=== PATIENT | female | born 2000 | race Caucasian/White ===

== ENCOUNTER 2018-02-25 16:58 | Emergency (ER) | payer OTHER ==
[2018-02-25] MEDS ORDERED: NA CHLORIDE 0.9% 1,000 ML ONE (18:38)
[2018-02-25 19:07] LABS: Absolute Lymphocytes (CBC) 2.9 K/uL (0.7-4.9); Absolute Monocytes 0.6 K/uL (0.1-1.3); Absolute Neutrophil 9.4 K/uL (1.8-8.0); Basophils % 0.2 % (0-1.3); Eosinophils % 3.5 % (0-4.4); Hematocrit 41.9 % (36.0-45.0); Lymphocytes % 21.6 % (15.3-44.8); MCH 28.2 pg (27.0-35.0); MCV 85.8 fL (80-100); MPV 10.7 fL (7.6-11.3); Monocytes % 4.7 % (3.3-12.3); RBC Red Blood Cell Count 4.89 M/uL (3.86-4.86)
[2018-02-25 19:08] LABS: Protime INR 1.01
[2018-02-25 19:29] LABS: ALT/SGPT 25 U/L (12-78); AST/SGOT 17 U/L (15-37); Albumin 3.8 g/dL (3.4-5.0); Alkaline Phosphatase 94 U/L (45-117); BUN Blood Urea Nitrogen 11 mg/dL (7-18); Bicarbonate 25 mmol/L (21-32); Bilirubin Direct 0.1 mg/dL (0-0.2); Bilirubin Total 0.2 mg/dL (0.2-1.0); Glucose Level 86 mg/dL (74-106); Potassium 3.5 mmol/L (3.5-5.1); Protein, Total 7.9 g/dL (6.4-8.2); Sodium Level 143 mmol/L (136-145)
[2018-02-25 20:00] LABS: Urine Blood NEGATIVE (NEG); Urine Glucose NEGATIVE (NEG); Urine Protein NEGATIVE (NEG); Urine Specific Gravity 1.015 (1.005-1.030)
[2018-02-25 21:14] LABS: Alcohol Serum/Plasma < 3 mg/dL (0-3)
[2018-02-25 21:14] LABS: Barbiturates NEGATIVE (NEGATIVE); Benzodiazepines NEGATIVE (NEGATIVE); Cocaine NEGATIVE (NEGATIVE); METHAMPHETAM NEGATIVE (NEGATIVE); Methadone NEGATIVE (NEGATIVE); Opiates NEGATIVE (NEGATIVE); Phencyclidine NEGATIVE (NEGATIVE); THC Cannibis POSITIVE (NEGATIVE)
--- NOTE | 2018-02-25 22:45 | ER ---
Nurse's Notes [facility] Name: Gus Hollis Age: 17 yrs Sex: Female : 2000 Arrival Date: 02/25/2018 Time: 17:01 Bed 18 Private MD: Diagnosis: Depression;Suicidal attempt Presentation: 02/25 17:42 Presenting complaint: Patient states: Took approximately 24 Benadryl about an hour ago. jl7 Transition of care: patient was not received from another setting of care. Onset of symptoms was February 25, 2018. Risk Assessment: Do you want to hurt yourself or someone else? Patient reports desire/thoughts of hurting themselves or someone else. Provider notified. Initial Sepsis Screen: Does the patient meet any 2 criteria? No. Patient's initial sepsis screen is negative. Does the patient have a suspected source of infection? No. Patient's initial sepsis screen is negative. Care prior to arrival: None. 17:42 Method Of Arrival: Ambulatory [facility] 17:42 Acuity: ROCKY 2 jl7 Triage Assessment: 17:45 General: Appears in no apparent distress. uncomfortable, Behavior is cooperative, jl7 drowsy. Pain: Denies pain. 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 - Social history:: Smoking status: Patient/guardian denies using tobacco, Patient uses street drugs, marijuana, Patient/guardian denies using alcohol. - Ebola Screening: : No symptoms or risks identified at this time. - Family history:: not pertinent. - Hospitalizations: : No recent hospitalization is reported. Screenin:56 Abuse screen: Denies threats or abuse. Denies injuries from another. Nutritional hj screening: No deficits noted. Tuberculosis screening: No symptoms or risk factors identified. Fall Risk None identified. Assessment: 17:45 General: Appears in no apparent distress. uncomfortable, Behavior is cooperative, hj appropriate for age, crying. Pain: Denies pain. Neuro: Level of Consciousness is awake, alert, obeys commands, Oriented to person, place, time, situation, Appropriate for age. Cardiovascular: Capillary refill < 3 seconds Patient's skin is warm and dry. Respiratory: Airway is patent Respiratory effort is even, unlabored, Respiratory pattern is regular, symmetrical. GI: No signs and/or symptoms were reported involving the gastrointestinal system. : No signs and/or symptoms were reported regarding the genitourinary system. EENT: No signs and/or symptoms were reported regarding the EENT system. Derm: No signs and/or symptoms reported regarding the dermatologic system. Musculoskeletal: No signs and/or symptoms reported regarding the musculoskeletal system. 18:16 Reassessment: Patient and/or family updated on plan of care and expected duration. Pain hj level reassessed. awaiting provider to visit pt;. 18:20 Reassessment: spoke with poison control rep about pt ingestion of 24 tab Benadryl, hj suggested to watch pt 6-8 hours post ingestion, draw CBC, CMP, tox screen/ drug screen, tylenol levels 4 hours post ingestion; to look for signs of confusion, hallucinations, seizure; watch for widening QRS and address it with Na Bicarb and Benzo; suggest use of activated charcoal 1 g/kg; get test;. 19:23 Reassessment: Patient appears in no apparent distress at this time. Patient and/or jd3 family updated on plan of care and expected duration. Pain level reassessed. Patient is alert, oriented x 3, equal unlabored respirations, skin warm/dry/pink. pt reassured. pt resting in bed. [facility] discussing plan with provider. 20:00 Reassessment: Patient appears in no apparent distress at this time. Patient and/or jd3 family updated on plan of care and expected duration. Pain level reassessed. Patient is alert, oriented x 3, equal unlabored respirations, skin warm/dry/pink. pt resting in bed, with family at bedside. mother requested to be called when more information is available about a potential transfer. mother- Miss Hollis [phone]. 21:00 Reassessment: Patient appears in no apparent distress at this time. Patient and/or jd3 family updated on plan of care and expected duration. Pain level reassessed. Patient is alert, oriented x 3, equal unlabored respirations, skin warm/dry/pink. pt reporting not needing anything at the current time. pt resting in bed. no distress noted at this time. 22:00 Reassessment: Patient appears in no apparent distress at this time. No changes from [facility] previously documented assessment. Patient and/or family updated on plan of care and expected duration. Pain level reassessed. Patient is alert, oriented x 3, equal unlabored respirations, skin warm/dry/pink. 22:10 Reassessment: Nurse to Nurse given to Ronald at [facility]. jd3 22:17 Reassessment: Nurse to nurse report given to Kevin at [facility]. jd3 22:32 Reassessment: Nurse to nurse given to WILLIE at [facility]. jd3 23:00 Reassessment: Patient appears in no apparent distress at this time. Patient and/or [facility] family updated on plan of care and expected duration. Pain level reassessed. Patient is alert, oriented x 3, equal unlabored respirations, skin warm/dry/pink. pt and family informed of approval at [facility], transfer form signed. 23:37 Reassessment: Patient appears in no apparent distress at this time. Patient and/or jd3 family updated on plan of care and expected duration. Pain level reassessed. Patient is alert, oriented x 3, equal unlabored respirations, skin warm/dry/pink. report given to EMS, pt reported understanding to need for transfer. Psych: 17:56 Subjective: Patient's mood is sad, Having thoughts of suicide. Objective: Patient is hj cooperative, Speech is normal, Affect is appropriate. Interventions: Removed personal items and placed in bag. Patient placed in hospital gown. Searched person for dangerous items. Belonging list filled out. Suicide Risk Assessment: Sad Person Scale: Sex of patient: Female: Score 0 points. Age of patient: Score 1 point if patient 15-34. Depression: Score 1 point if signs of depression are present. Previous Attempt: Substance Abuse: Rational Thinking: Score 0 point if patient has rational thinking. Social Support: Score 0 if social support is present/available. Organized Plan: Score 1 point if patient had a plan in place. Relationship: Chronic Sickness:. Safety Checks: Personal items have been removed. Door is open. Visitors are present. Pt denies substance abuse. Commitment: Patient will be a voluntary commitment. Vital Signs: 17:45 BP 133 / 77; Pulse 108; Resp 16 S; Temp 98.9(O); Pulse Ox 97% on R/A; Weight 113.4 kg jl7 (R); Height 5 ft. 8 in. (172.72 cm) (R); Pain 0/10; 21:49 BP 112 / 65; Pulse 75; Resp 18; Temp 98.9; Pulse Ox 99% on R/A; Pain 0/10; oe 23:16 BP 130 / 84; Pulse 84; Resp 18; Temp 99.3(O); Pulse Ox 100% on R/A; Pain 0/10; oe 17:45 Body Mass Index 38.01 (113.40 kg, 172.72 cm) jl7 ED Course: 17:01 Patient arrived in ED. mr 17:43 Triage completed. jl7 17:45 Arm band placed on right wrist. 7 17:50 Guido Shipman, RN is Primary Nurse. hj 17:58 Patient has correct armband on for positive identification. Placed in gown. Bed in low hj position. Call light in reach. Side rails up X 1. Adult w/ patient. 18:01 Baljeet Nguyen MD is Attending Physician. rn 18:20 Urine collected: clean catch specimen, clear. dh3 18:25 Initial lab(s) drawn, by me, sent to lab. Inserted saline lock: 20 gauge in right dh3 antecubital area, using aseptic technique. Blood collected. 19:00 Safety checks: Items removed: yes. Door open/sign placed on door: yes. Family/friend oe present: no. Sitter present: Yes. 19:15 Safety checks: Items removed: yes. Door open/sign placed on door: yes. Family/friend oe present: no. Sitter present: Yes. 19:30 Safety checks: Items removed: yes. Door open/sign placed on door: yes. Family/friend oe present: no. Sitter present: Yes. 19:45 Safety checks: Items removed: yes. Door open/sign placed on door: yes. Family/friend oe present: no. Sitter present: Yes. 20:00 Safety checks: Items removed: yes. Door open/sign placed on door: yes. Family/friend oe present: yes. Family/friends encouraged to stay with patient. no. Sitter present: Yes. 20:15 Safety checks: Items removed: yes. Door open/sign placed on door: yes. Family/friend oe present: no. Sitter present: Yes. 20:35 Primary Nurse role handed off by Guido Shipman RN jd3 20:35 Cristofer English RN is Primary Nurse. jd3 20:45 Safety checks: Items removed: yes. Door open/sign placed on door: yes. Family/friend oe present: no. Sitter present: Yes. 21:00 Safety checks: Items removed: yes. Door open/sign placed on door: yes. Family/friend oe present: no. Sitter present: Yes. 21:15 Safety checks: Items removed: yes. Door open/sign placed on door: yes. Family/friend oe present: no. Sitter present: Yes. 21:30 Safety checks: Items removed: yes. Door open/sign placed on door: yes. Family/friend oe present: yes. Family/friends encouraged to stay with patient. Sitter present: Yes. 21:45 Safety checks: Items removed: yes. Door open/sign placed on door: yes. Family/friend oe present: yes. Family/friends encouraged to stay with patient. Sitter present: Yes. 22:00 Safety checks: Items removed: yes. Door open/sign placed on door: yes. Family/friend oe present: no. Sitter present: Yes. 22:15 Safety checks: Items removed: yes. Door open/sign placed on door: yes. Family/friend oe present: no. Sitter present: Yes. 22:17 Attending Physician role handed off by Baljeet Nguyen MD va 22:17 Luis Ocampo MD is Attending Physician. wa 22:30 Safety checks: Items removed: yes. Door open/sign placed on door: yes. Family/friend oe present: no. Sitter present: Yes. 22:45 Safety checks: Items removed: yes. Door open/sign placed on door: yes. Family/friend oe present: yes. Family/friends encouraged to stay with patient. no. Sitter present: Yes. 23:00 Safety checks: Items removed: yes. Door open/sign placed on door: yes. Family/friend oe present: yes. Family/friends encouraged to stay with patient. Sitter present: Yes. 23:06 No provider procedures requiring assistance completed. IV discontinued, intact, jd3 bleeding controlled, No redness/swelling at site. Pressure dressing applied. 23:15 Safety Checks: Personal items have been removed. The door is open or patient has been jd3 placed in a hallway bed/chair. A family member and/or friend is present and encouraged to stay. Sitter present at this time. 23:30 Safety Checks: Personal items have been removed. The door is open or patient has been jd3 placed in a hallway bed/chair. A family member and/or friend is present and encouraged to stay. Sitter present at this time. Administered Medications: 18:32 Drug: NS 0.9% 1000 ml Route: IV; Rate: 1000 ml; Site: right antecubital; 23:17 Follow up: Response: No adverse reaction; IV Status: Completed infusion; IV Intake: jd3 1000ml Intake: 23:17 IV: 1000ml; Total: 1000ml. [facility] Outcome: 22:45 ER care complete, transfer ordered by . va 23:36 Transferred by ground EMS Transfer form completed. Note: transported to [address] report given to EMS 23:36 Condition: stable 23:36 Instructed on the need for transfer, Demonstrated understanding of instructions. 23:41 Patient left the ED. [facility] Signatures: Lily Rhodes Roman, MD MD rn Joaquin, Henry, RN RN hj Espinosa, Orlando oe Leal, Jahala, RN RN andrez7 Sarita Franklin 3 Luis Ocampo MD MD wa Davies, Jonathon, RN RN jd3 Corrections: (The following items were deleted from the chart) 18:25 18:20 Reassessment: spoke with poison control rep about pt ingestion of 24 tab cindy Benadryl, suggested to watch pt 6-8 hours post ingestion, draw CBC, CMP, tox screen/ drug screen, tylenol levels 4 hours post ingestion; to look for signs of confusion, hallucinations, seizure; watch for widening QRS and address it with Na Bicarb and Benzo; suggest use of activated charcoal 1 g/kg; 20:10 20:00 Safety checks: Items removed: yes. Door open/sign placed on door: yes. leticia Family/friend present: no. Sitter present: Yes. oe 21:54 21:53 Safety checks: Items removed: yes. Door open/sign placed on door: yes. oe Family/friend present: yes. Family/friends encouraged to stay with patient. Sitter present: Yes. oe 23:08 21:54 Safety checks: Items removed: yes. Door open/sign placed on door: yes. oe Family/friend present: no. Sitter present: Yes. oe
--- NOTE | 2018-02-25 22:45 | EDPHYS ---
Physician Documentation [facility] Name: Gus Hollis Age: 17 yrs Sex: Female : 2000 Arrival Date: 02/25/2018 Time: 17:01 Bed 18 Private MD: ED Physician Luis Ocampo HPI: 02/25 18:52 This 17 yrs old Female presents to ER via Ambulatory with complaints of rn Suicidal Ideation. 18:52 The patient presents to the emergency department with depression, suicide ideation. 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 Severity of symptoms: At their worst the symptoms were mild in the emergency department the symptoms are unchanged. The patient has experienced similar episodes in the past. 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 - Social history:: Smoking status: Patient/guardian denies using tobacco, Patient uses street drugs, marijuana, Patient/guardian denies using alcohol. - Ebola Screening: : No symptoms or risks identified at this time. - Family history:: not pertinent. - Hospitalizations: : No recent hospitalization is reported. ROS: 18:52 Constitutional: Negative for fever, chills, and weight loss, Eyes: Negative for injury, rn pain, redness, and discharge, Neck: Negative for injury, pain, and swelling, Cardiovascular: Negative for chest pain, palpitations, and edema, Respiratory: Negative for shortness of breath, cough, wheezing, and pleuritic chest pain, Abdomen/GI: Negative for abdominal pain, vomiting, diarrhea, and constipation, + nausea MS/Extremity: Negative for injury and deformity, Skin: Negative for injury, rash, and discoloration, Neuro: Negative for headache, weakness, numbness, tingling, and seizure. Exam: 18:52 Constitutional: This is a well developed, well nourished patient who is awake, alert, rn tearful. Head/Face: Normocephalic, atraumatic. Eyes: Pupils equal round and reactive to light, extra-ocular motions intact. Lids and lashes normal. Conjunctiva and sclera are non-icteric and not injected. Cornea within normal limits. Periorbital areas with no swelling, redness, or edema. Neck: Trachea midline, no thyromegaly or masses palpated, and no cervical lymphadenopathy. Supple, full range of motion without nuchal rigidity, or vertebral point tenderness. No Meningismus. Cardiovascular: Regular rate and rhythm with a normal S1 and S2. No gallops, murmurs, or rubs. Normal PMI, no JVD. No pulse deficits. Respiratory: Lungs have equal breath sounds bilaterally, clear to auscultation and percussion. No rales, rhonchi or wheezes noted. No increased work of breathing, no retractions or nasal flaring. Abdomen/GI: Soft, non-tender, with normal bowel sounds. No distension or tympany. No guarding or rebound. No evidence of tenderness throughout. Skin: Warm, dry with normal turgor. Normal color with no rashes, no lesions, and no evidence of cellulitis. MS/ Extremity: Pulses equal, no cyanosis. Neurovascular intact. Full, normal range of motion. Equal circumference. Neuro: Awake and alert, GCS 15, oriented to person, place, time, and situation. Cranial nerves II-XII grossly intact. Motor strength 5/5 in all extremities. Sensory grossly intact. Cerebellar exam normal. Normal gait. Vital Signs: 17:45 BP 133 / 77; Pulse 108; Resp 16 S; Temp 98.9(O); Pulse Ox 97% on R/A; Weight 113.4 kg jl7 (R); Height 5 ft. 8 in. (172.72 cm) (R); Pain 0/10; 21:49 BP 112 / 65; Pulse 75; Resp 18; Temp 98.9; Pulse Ox 99% on R/A; Pain 0/10; oe 23:16 BP 130 / 84; Pulse 84; Resp 18; Temp 99.3(O); Pulse Ox 100% on R/A; Pain 0/10; oe 17:45 Body Mass Index 38.01 (113.40 kg, 172.72 cm) jl7 MDM: 18:01 Patient medically screened. rn 22:42 Differential diagnosis: depression, suicidal attempt. depression. needs psych eval. or Data reviewed: vital signs, nurses notes. Test interpretation: by ED physician or midlevel provider: UDS noted for THC. Response to treatment: the patient's symptoms have mildly improved after treatment. Physician consultation:. Special discussion: accepted by Dr. Cutler at [facility]. 02/25 18:32 Order name: Acetaminophen; Complete Time: 22: 02/25 18:32 Order name: Basic Metabolic Panel; Complete Time: 22: 02/25 18:32 Order name: CBC with Diff; Complete Time: : 02/25 18:32 Order name: ETOH Level; Complete Time: 22: 02/25 18:32 Order name: Hepatic Function; Complete Time: 22: 02/25 18:32 Order name: PT-INR; Complete Time: 22: 02/25 18:32 Order name: Urine Test (obtain specimen); Complete Time: 18:32 02/25 18:32 Order name: Ptt, Activated; Complete Time: 22: 02/25 18:32 Order name: Salicylate; Complete Time: 22: 02/25 18:32 Order name: Urine Drug Screen; Complete Time: 22: 02/25 18:32 Order name: EKG; Complete Time: 18:33 02/25 19:32 Order name: Urine Dipstick--Ancillary (enter results); Complete Time: 22: [facility] 02/25 19:32 Order name: Urine --Ancillary (enter results); Complete Time: 22:22 [facility] 02/25 18:32 Order name: EKG - Nurse/Tech; Complete Time: 18:47 02/25 18:32 Order name: IV Saline Lock; Complete Time: 18:33 02/25 18:32 Order name: Labs collected and sent; Complete Time: 18:33 02/25 18:32 Order name: Urine Dipstick-Ancillary (obtain specimen); Complete Time: 18:33 rn Administered Medications: 18:32 Drug: NS 0.9% 1000 ml Route: IV; Rate: 1000 ml; Site: right antecubital; hj 23:17 Follow up: Response: No adverse reaction; IV Status: Completed infusion; IV Intake: jd3 1000ml Disposition: 02/25/18 22:45 Transfer ordered to Psych Facility. Diagnosis are Depression, Suicidal attempt. - Reason for transfer: Higher level of care. - Accepting physician is Dr. Cutler. - Condition is Stable. - Problem is new. - Symptoms have improved. Signatures: Dispatcher [employer] EDBaljeet Jolly MD MD rn Joaquin, Henry, RN RN hj Leal, Jahala, RN RN jl7 Lius Ocampo MD MD wa Davies, Jonathon, RN RN jd3 Corrections: (The following items were deleted from the chart) 23:41 22:45 02/25/2018 22:45 Transfer ordered to Psych Facility. Diagnosis is Depression; jd3 Suicidal attempt. Reason for transfer: Higher level of care. Accepting physician is Dr. Cutler. Condition is Stable. Problem is new. Symptoms have improved. guru
[2018-02-26 00:37] VITALS: BP 130/84; TEMP 99.3; O2SAT 100
--- NOTE | 2018-02-26 08:17 | EKG ---
Test Date: 2018-02-25 Test Time: 18:44:08 Pastry Assistant: MARILEE MEASUREMENT RESULTS: Intervals: Rate: 87 WI: 118 QRSD: 94 QT: 388 QTc: 466 Placida: P: 39 WI: 118 QRS: 49 T: 41 INTERPRETIVE STATEMENTS: Normal sinus rhythm with sinus arrhythmia Normal ECG Electronically Signed On 02-26-18 08:16:23 CDT by Lambert Gan
== END 2018-02-25 23:41 ==
LOC: ER 16:58
DX: T45.0X2A Poisoning by antiallergic and antiemetic drugs, intentional self-harm, initial encounter (principal); Y92.009 Unspecified place in unspecified non-institutional (private) residence as the place of occurrence of the external cause; Z88.3 Allergy status to other anti-infective agents; Z88.0 Allergy status to penicillin; F31.9 Bipolar disorder, unspecified
CPT/HCPCS: 36415; 80048; 80076; 80307; 80320; 80329; 81003; 81025; 85025; 85610; 85730; 93005; 96360; 96361; 99285; J7030

== ENCOUNTER 2019-02-16 22:35 | Emergency (ER) | payer OTHER ==
[2019-02-16 23:22] LABS: Urine Bacteria <20 /HPF (<20); Urine Culture Reflex Order NOT NEEDED; Urine RBC <5 /HPF (NONE SEEN)
[2019-02-17] MEDS ORDERED: FENTANYL CITR 100 MCG/2 ML ONE (00:24)
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
[2019-02-17 02:28] VITALS: TEMP 98.3
[2019-02-17 02:31] VITALS: BP 109/87; O2SAT 98
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
== END 2019-02-17 01:14 | disposition home or self-care (01) ==
LOC: ER 22:35
DX: S20.222A Contusion of left back wall of thorax, initial encounter (principal); S13.4XXA Sprain of ligaments of cervical spine, initial encounter; V43.52XA Car driver injured in collision with other type car in traffic accident, initial encounter; Y93.89 Activity, other specified; Y92.410 Unspecified street and highway as the place of occurrence of the external cause; Z88.0 Allergy status to penicillin
CPT/HCPCS: 70450; 71260; 72125; 74177; 81015; 96374; 99285; J3010; Q9967